=== PATIENT | female | born 1985 | race Caucasian/White ===

== ENCOUNTER 2021-08-16 13:03 | Emergency (ER) | payer BC ==
[~2021-08-16] VITALS: Ht 162.6 cm; Wt 72.6 kg
[2021-08-16 13:09] VITALS: BP 162/109
[2021-08-16 14:17] LABS: BASOPHILS # (AUTO) 0.1 K/uL (0.00-0.22); BASOPHILS % (AUTO) 0.8 % (0.0-2.0); EOSINOPHILS % (AUTO) 0.4 % (0.0-4.0); HEMATOCRIT 28.1 % (36-48); HEMOGLOBIN 8.8 g/dL (12.0-16.0); LYMPHOCYTES # (AUTO) 3.3 K/uL (2.5-16.5); MEAN CORPUSCULAR HEMOGLOBIN 23 pg (27-31); MEAN CORPUSCULAR HGB CONC 31 g/dL (33-37); MONOCYTES # (AUTO) 0.7 K/uL (0.8-1.0); MONOCYTES % (AUTO) 5.9 % (1.7-9.3); NEUTROPHILS % (AUTO) 65.9 % (42.2-75.2); PLATELET COUNT (AUTO) 680 K/uL (140-450); RED BLOOD CELL COUNT(AUTO) 3.79 MIL/uL (4.20-5.40); RED CELL DISTRIBUTION WIDTH 16.4 % (11.6-13.7); WHITE BLOOD COUNT (AUTO) 12.2 K/uL (4.8-10.8)
[2021-08-16 16:22] LABS: ALBUMIN 3.6 g/dL (3.4-5.0); ANION GAP 16.1 (8-16); CARBON DIOXIDE 25.5 mmol/L (21-32); CREATININE 0.8 mg/dL (0.6-1.3); POTASSIUM 4.6 mmol/L (3.5-5.1); TOTAL BILIRUBIN 0.2 mg/dL (0.0-1.0)
[2021-08-16 17:10] VITALS: BP 133/91
== END 2021-08-16 17:10 | disposition home or self-care (01) ==
LOC: MED 13:03
DX: D25.9 Leiomyoma of uterus, unspecified (principal); D64.9 Anemia, unspecified; E11.9 Type 2 diabetes mellitus without complications
CPT/HCPCS: 36415; 80053; 85025; 93005; 99285

== ENCOUNTER 2022-02-01 12:18 | Emergency (ER) | payer BC ==
[~2022-02-01] VITALS: Ht 170.2 cm; Wt 96.7 kg
[2022-02-01 12:20] VITALS: BP 150/97
[2022-02-01] MEDS ORDERED: NITR100C7 PO (13:24)
--- NOTE | 2022-02-01 13:35 | NUR ---
36/F PRESENTS TO ED WITH C/O LOWER ABDOMINAL PAIN AND "PRESSURING WHEN PEEING" SINCE SUNDAY, PATIENT DENIES N/V/D, FEVERS, DYSURIA OR HEMATURIA. PATIENT DENIES TAKING MEDS FOR SYMPTOMS.
[2022-02-01 13:45] VITALS: BP 150/97
== END 2022-02-01 13:45 | disposition home or self-care (01) ==
LOC: MED 12:18
DX: N39.0 Urinary tract infection, site not specified (principal); E11.9 Type 2 diabetes mellitus without complications; Z90.49 Acquired absence of other specified parts of digestive tract; Z98.890 Other specified postprocedural states; Z90.710 Acquired absence of both cervix and uterus; Z79.2 Long term (current) use of antibiotics
CPT/HCPCS: 81002; 81025; 99283

== ENCOUNTER 2022-02-07 15:33 | Emergency (ER) | payer BC ==
[~2022-02-07] VITALS: Ht 170.2 cm; Wt 98.5 kg
[~2022-02-07 15:33] MED LIST: NITR100C7 PO
[2022-02-07 16:20] VITALS: BP 138/77
[2022-02-07] MEDS ORDERED: KETOROLAC 30 MG/ML VIAL IVP ONE (17:25)
--- NOTE | 2022-02-07 17:42 | NUR ---
PT AMBULATED TO ER BED 7
--- NOTE | 2022-02-07 17:50 | NUR ---
36YO FEMALE PT C/O CONSTANT SHARP LOWER ABDOMINAL PAIN X1WEEK. PT REPORTS RECENT UTI AND FINISHING ANTIBIOTICS W/ NO RELIEF. DENIES DYSURIA ,N/V/D, FEVER, CHILLS, CHEST PAIN OR SOB. MILD RELIEF AFTER TAKING TYLENOL. PT AAOX4, RESPIRATOINS EVEN AND UNLABORED. HX:DENIES NKA
[2022-02-07 18:04] LABS: BASOPHILS # (AUTO) 0.1 K/uL (0.00-0.22); BASOPHILS % (AUTO) 1.2 % (0.0-2.0); EOSINOPHILS # (AUTO) 0.3 K/uL (0-0.4); EOSINOPHILS % (AUTO) 2.6 % (0.0-4.0); HEMATOCRIT 34.2 % (36-48); LYMPHOCYTES # (AUTO) 2.4 K/uL (2.5-16.5); LYMPHOCYTES % (AUTO) 23.9 % (20.5-51.1); MEAN CORPUSCULAR HEMOGLOBIN 26 pg (27-31); MEAN CORPUSCULAR HGB CONC 32 g/dL (33-37); MEAN CORPUSCULAR VOLUME 79.5 fL (80-94); MONOCYTES # (AUTO) 0.9 K/uL (0.8-1.0); MONOCYTES % (AUTO) 8.7 % (1.7-9.3); NEUTROPHILS # (AUTO) 6.4 K/uL (1.8-7.7); NEUTROPHILS % (AUTO) 63.6 % (42.2-75.2); PLATELET COUNT (AUTO) 462 K/uL (140-450); RED CELL DISTRIBUTION WIDTH 18.9 % (11.6-13.7)
[2022-02-07 18:21] LABS: APPEARANCE,URINE CLEAR (CLEAR); BILIRUBIN,URINE NEGATIVE (NEGATIVE); BLOOD, URINE NEGATIVE (NEGATIVE); COLOR,URINE YELLOW (YELLOW); LEUKOCYTE ESTERASE ,URINE NEGATIVE (NEGATIVE); NITRITE, URINE NEGATIVE (NEGATIVE); UGLUCOSE 3+ (NEGATIVE)
[2022-02-07 18:23] LABS: ALBUMIN 3.6 g/dL (3.4-5.0); ANION GAP 15.7 (8-16); CARBON DIOXIDE 25.9 mmol/L (21-32); CREATININE 0.8 mg/dL (0.6-1.3); POTASSIUM 3.6 mmol/L (3.5-5.1); TOTAL BILIRUBIN 0.1 mg/dL (0.0-1.0)
--- NOTE | 2022-02-07 18:31 | NUR ---
PT SENT TO CT WITH TECH VIA W/C
--- NOTE | 2022-02-07 18:41 | NUR ---
PT BROUGHT BACK FROM CT VIA WHEELCHAIR
--- NOTE | 2022-02-07 19:21 | NUR ---
REPORT GIVEN TO STEPHEN NAPOLES. ALL QUESTIONS ANSWERED. TRANSFER OF CARE AT THIS TIME
--- NOTE | 2022-02-07 19:56 | NUR ---
PATIENT PRESENTS TO ER WITH C/O OF LOWER ABD PAIN X1WEEK. PT HAD A UTI LAST WEEK FINISHED ALL ABX. DENIES PAIN URGENCY OR FREQ WITH URINATION. DENIES FEVER N/V/D. PT IS A&OX4. SKIN WARM DRY AND INTACT. ULTRASOUND AT BEDSIDE. CT ABD COMPLETE PENDING RESULTS. 10 PAIN LEVEL PAIN IS CONTSENT. PT STATES PAIN IS MOSTLY ON LLQ. NKDA NO MED HX
[2022-02-07] MEDS ORDERED: IBUP-2213 PO (20:41)
[2022-02-07] MEDS ORDERED: ACET-8386 PO (20:41)
[2022-02-07 20:54] VITALS: BP 130/91
--- NOTE | 2022-02-07 20:54 | NUR ---
Patient discharged with v/s stable. Written and verbal after care instructions given and explained. Patient alert, oriented and verbalized understanding of instructions. Ambulatory with steady gait. All questions addressed prior to discharge. ID band removed. Patient advised to follow up with PMD. Rx of HYDROCODONE ACETAMINOPHEN IBUPROFEN given.
== END 2022-02-07 20:54 | disposition home or self-care (01) ==
LOC: MED 15:33
DX: R19.00 Intra-abdominal and pelvic swelling, mass and lump, unspecified site (principal); E11.9 Type 2 diabetes mellitus without complications; Z79.4 Long term (current) use of insulin; Z79.899 Other long term (current) drug therapy; Z90.49 Acquired absence of other specified parts of digestive tract
CPT/HCPCS: 36415; 74177; 76856; 80053; 81003; 81025; 83690; 85025; 93976; 96374; 99285; J1885; Q9967